=== PATIENT | male | born 1990 | race Caucasian/White ===

== ENCOUNTER 2022-11-28 21:08 | Emergency (ER) | payer MEDICAID ==
[~2022-11-28] VITALS: Ht 172.7 cm; Wt 82.0 kg
[2022-11-28 21:12] VITALS: BP 144/98; PULSE 84; RESP 16; TEMP 98.9; O2SAT 91
[2022-11-28] MEDS ORDERED: NALO4SPR BOTHNSTRLS (21:52)
[2022-11-28 22:09] LABS: BASOPHILS % 1.2 % (0.0-2.0); EOSINOPHILS % 2.8 % (0.0-5.0); HEMATOCRIT. 43.7 % (42.0-52.0); HEMOGLOBIN. 14.7 g/dL (14.0-18.0); LYMPHOCYTES % 36.8 % (20.0-50.0); MEAN CORPUSCULAR HEMOGLOBIN 29.3 pg (28.0-32.0); MEAN CORPUSCULAR HGB CONC 33.8 g/dL (31.0-37.0); MEAN CORPUSCULAR VOLUME 86.8 fL (80.0-94.0); MEAN PLATELET VOLUME 7.5 fl (7.4-10.4); MONOCYTES % 9.2 % (2.0-8.0); PLATELET 233 x1000/uL (130-400); RED BLOOD CELL COUNT 5.03 mill/uL (4.7-6.1); RED CELL DISTRIBUTION WIDTH 14.3 % (11.6-14.6)
[2022-11-28 22:20] LABS: CHLORIDE 106 mEq/L (98-107); INDEX HEMOLYSI 1 (1-3); INDEX ICTERIC 1 (1-4); INDEX LIPEMIC 1 (1-3); POTASSIUM 3.2 mEq/L (3.5-5.1); SODIUM 135 mEq/L (136-145)
[2022-11-28 22:31] LABS: ACETAMINOPHEN <2 ug/mL ug/mL (10-30); ALANINE AMINOTRANSFERASE 25 IU/L (13-61); ALBUMIN 3.9 g/dL (3.4-5.0); ASPARTATE AMINOTRANSFERASE 24 IU/L (15-37); BILIRUBIN TOTAL 0.6 mg/dL (0.1-1.0); CALCIUM 8.3 mg/dL (8.5-10.1); CARBON DIOXIDE 23 mEq/L (21-32); CREATININE 0.6 mg/dL (0.6-1.3); ETHANOL BLOOD 128 mg/dL (-10); GLUCOSE 112 mg/dL (70-105); PROTEIN TOTAL 7.4 g/dL (6.0-8.3); UREA NITROGEN BLOOD 5 mg/dL (7-21)
== END 2022-11-28 21:57 | disposition home or self-care (01) ==
LOC: ER 21:08
DX: T50.991A Poisoning by other drugs, medicaments and biological substances, accidental (unintentional), initial encounter (principal); F14.90 Cocaine use, unspecified, uncomplicated; F11.90 Opioid use, unspecified, uncomplicated; Y92.89 Other specified places as the place of occurrence of the external cause
CPT/HCPCS: 36415; 80053; 80307; 80320; 80329; 85025; 99283; G0480

== ENCOUNTER 2024-10-10 00:53 | Emergency (ER) | payer MEDICAID, OTHER ==
[~2024-10-10] VITALS: Ht 177.8 cm; Wt 90.0 kg
[~2024-10-10 00:53] MED LIST: NALO4SPR BOTHNSTRLS
[2024-10-10 01:00] VITALS: O2SAT 96
[2024-10-10] MEDS: ACETAMINOPHEN 500MG TABLET PO ONE (03:04)
[2024-10-10] MEDS ORDERED: HYDR-4001 MT (05:08)
[2024-10-10] MEDS ORDERED: LIDO-53 TP (05:09)
[2024-10-10 05:25] VITALS: BP 106/70; PULSE 92; RESP 18; TEMP 36.7; O2SAT 95
== END 2024-10-10 05:39 | disposition home or self-care (01) ==
LOC: ER 00:53
DX: S02.401A Maxillary fracture, unspecified side, initial encounter for closed fracture (principal); S02.2XXA Fracture of nasal bones, initial encounter for closed fracture; S00.81XA Abrasion of other part of head, initial encounter; S80.212A Abrasion, left knee, initial encounter; Y04.0XXA Assault by unarmed brawl or fight, initial encounter; Y93.89 Activity, other specified; Y92.89 Other specified places as the place of occurrence of the external cause; Y99.8 Other external cause status
CPT/HCPCS: 73130; 70450; 70486; 72125; 99285; Z7610 ×2